=== PATIENT | male | born 1955 | race Caucasian/White ===

== ENCOUNTER 2020-09-21 09:38 | Outpatient (REF) | payer OTHER, SELFPAY ==
--- NOTE | ~2020-09-21 | XR_ITS ---
EXAMINATION: XR SHOULDER, LEFT CLINICAL INFORMATION: Pain COMPARISON: None TECHNIQUE: AP external rotation, Grashey, scapular Y, and axillary views of the left shoulder. FINDINGS: Bone alignment is normal. No fracture or dislocation is seen. The glenohumeral joint is normal. 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 There are soft tissue calcifications adjacent to the greater tuberosity suggestive of calcific bursitis or tendinitis. XR/XR shoulder LT min 2V IMPRESSION: Mild arthritis at the acromioclavicular joint. Soft tissue calcifications adjacent to the greater tuberosity suggestive of calcific bursitis or tendinitis..
== END 2020-09-21 09:39 | disposition home or self-care (01) ==
LOC: HO.XRAY 09:38
PROVIDERS: PCP Internal Medicine; Visit Provider Orthopaedic Surgery
DX: M25.512 Pain in left shoulder (principal); S46.002A Unspecified injury of muscle(s) and tendon(s) of the rotator cuff of left shoulder, initial encounter
CPT/HCPCS: 73030; 99202

== ENCOUNTER → 2020-10-12 09:41 | Outpatient (BNVA) | payer OTHER, SELFPAY | PROVIDERS: Visit Provider Orthopaedic Surgery | DX: S46.002D Unspecified injury of muscle(s) and tendon(s) of the rotator cuff of left shoulder, subsequent encounter (principal) | CPT/HCPCS: 99212 ==

== ENCOUNTER → 2020-11-02 09:06 | Outpatient (BNVA) | payer OTHER, SELFPAY | PROVIDERS: PCP Internal Medicine; Visit Provider Orthopaedic Surgery | DX: S46.002D Unspecified injury of muscle(s) and tendon(s) of the rotator cuff of left shoulder, subsequent encounter (principal) | CPT/HCPCS: 99212 ==